=== PATIENT | male | born 1950 | race Caucasian/White ===

== ENCOUNTER 2025-06-27 13:50 | Outpatient (AMB) | payer MEDICARE, SELFPAY | END 2025-06-27 13:52 | disposition home or self-care (01) | LOC: HO.HMGAL 13:50 | PROVIDERS: Visit Provider Registered Nurse Emergency | DX: J30.89 Other allergic rhinitis (principal) | CPT/HCPCS: 95117; 95165 ==

== ENCOUNTER 2025-07-13 11:35 | Outpatient (AMB) | payer MEDICARE, SELFPAY | END 2025-07-13 12:03 | disposition home or self-care (01) | LOC: HO.HMGAL 11:35 | PROVIDERS: Visit Provider Registered Nurse Emergency | DX: J30.89 Other allergic rhinitis (principal) | CPT/HCPCS: 95117; 95165 ==

== ENCOUNTER 2025-07-27 12:48 | Outpatient (AMB) | payer MEDICARE, SELFPAY | END 2025-07-27 12:49 | disposition home or self-care (01) | LOC: HO.HMGAL 12:48 | PROVIDERS: PCP Family Medicine; Visit Provider Registered Nurse Emergency | DX: J30.89 Other allergic rhinitis (principal) | CPT/HCPCS: 95117; 95165 ==

== ENCOUNTER 2025-08-24 13:09 | Outpatient (AMB) | payer MEDICARE, SELFPAY | END 2025-08-24 13:12 | disposition home or self-care (01) | LOC: HO.HMGAL 13:09 | PROVIDERS: PCP Family Medicine; Visit Provider Registered Nurse Emergency | DX: J30.89 Other allergic rhinitis (principal) | CPT/HCPCS: 95117; 95165 ==

== ENCOUNTER 2025-09-05 12:57 | Outpatient (AMB) | payer MEDICARE, SELFPAY | END 2025-09-05 12:57 | disposition home or self-care (01) | LOC: HO.HMGAL 12:57 | PROVIDERS: PCP Family Medicine; Visit Provider Registered Nurse Emergency | DX: J30.89 Other allergic rhinitis (principal) | CPT/HCPCS: 95117; 95165 ==

== ENCOUNTER 2025-09-19 13:06 | Outpatient (AMB) | payer MEDICARE, SELFPAY | END 2025-09-19 13:07 | disposition home or self-care (01) | LOC: HO.HMGAL 13:06 | PROVIDERS: PCP Family Medicine; Visit Provider Registered Nurse Emergency | DX: J30.89 Other allergic rhinitis (principal) | CPT/HCPCS: 95117; 95165 ==

== ENCOUNTER 2025-10-03 13:33 | Outpatient (AMB) | payer MEDICARE, SELFPAY | END 2025-10-03 13:36 | disposition home or self-care (01) | LOC: HO.HMGAL 13:33 | PROVIDERS: PCP Family Medicine; Visit Provider Registered Nurse Emergency | DX: J30.89 Other allergic rhinitis (principal) | CPT/HCPCS: 95117; 95165 ==

== ENCOUNTER 2025-10-17 12:47 | Outpatient (AMB) | payer MEDICARE, SELFPAY | END 2025-10-17 12:50 | disposition home or self-care (01) | LOC: HO.HMGAL 12:47 | PROVIDERS: PCP Family Medicine; Visit Provider Registered Nurse Emergency | DX: J30.89 Other allergic rhinitis (principal) | CPT/HCPCS: 95117; 95165 ==

== ENCOUNTER 2025-10-31 13:03 | Outpatient (AMB) | payer MEDICARE, SELFPAY | END 2025-10-31 13:05 | disposition home or self-care (01) | LOC: HO.HMGAL 13:03 | PROVIDERS: PCP Family Medicine; Visit Provider Registered Nurse Emergency | DX: J30.89 Other allergic rhinitis (principal) | CPT/HCPCS: 95117; 95165 ==